=== PATIENT | male | born 1935 | race Caucasian/White ===

== ENCOUNTER 2017-04-22 13:00 | Inpatient (IN) | payer MEDICARE, OTHER ==
--- NOTE | 2017-04-22 16:00 | HP ---
PRIMARY CARE PHYSICIAN: Dr. Guille Ugarte. REASON FOR ADMISSION: Transfer from [facility] for sepsis, community-acquired pneumonia. HISTORY OF PRESENT ILLNESS: An 81-year-old male with a history of hypertension , benign enlargement of prostate, gastroesophageal reflux disease, who initially went to [facility] for evaluation of high grade fever. The patient was also having cough. The patient reports that last night he had too much this morning around 4:00 a.m. He woke up at that time he had episode of vomiting. He felt that he might have aspirated food particle. Subsequently , he was having cough productive of scant sputum. He started having fever with a T maximum 102 at home. He was feeling chills and he was feeling mild shortness of breath. He decided to go to local emergency room. Over there, he was tachycardic with pulse 111 and temperature 99.3. His blood pressure was normal. He was saturating normal. His routine blood tests showed leukocytosis with a left shift. He was given Zosyn, IV fluids, Zofran and subsequently, he was sent to our emergency room for evaluation. Patient had a similar problem about 4 years ago. At that time, he had abnormal x-ray and he was able to go home from the ER with oral medication. He denies any UTI symptoms. He denies any constipation or diarrhea. He denies any abdominal pain. He denies any recent flu-like illness. He does have chronic sinusitis and nasal drip and that gives intermittent cough. He denies any pleuritic chest pain. He denies any sore throat. He denies any recent travel or sick exposure. He is up to date in his flu and pneumonia vaccinations. He is following Dr. Frandy Riggs at [facility]. PAST MEDICAL HISTORY: Nephrolithiasis, benign enlargement of prostate, hypertension, dyslipidemia, and gastroesophageal reflux disease. PAST SURGICAL HISTORY: Wrist fusion, appendicectomy, carpal tunnel surgery, cholecystectomy, appendicectomy, vasectomy, hernia repair, neck surgery for bone spur. PAST PSYCHIATRIC HISTORY: Reviewed and negative. SOCIAL HISTORY: Patient is a former smoker. He quit smoking more than 10 years ago. He denies any alcohol or other illicit drug abuse. He lives at home with his family. FAMILY HISTORY: No strong family history of premature CAD, CVA or cancer. EMERGENCY ROOM COURSE At [facility], the patient was given IV fluid, Zofran and Zosyn. ALLERGIES: DOXYCYCLINE. CURRENT HOME MEDICATIONS: Aspirin 81 mg p.o. daily, Detrol-LA 4 mg p.o. daily, metoprolol 25 mg p.o. daily, Flonase nasal spray daily, omeprazole 20 mg p.o. daily, Flomax 0.4 mg p.o. daily, calcium with vitamin D 1 tablet p.o. daily, Centrum Silver 1 tablet p.o. daily, hydrochlorothiazide 12.5 mg daily. REVIEW OF SYSTEMS: The following complete review of systems was negative, unless otherwise mentioned in the HPI or below: CONSTITUTIONAL: Weight loss or gain, ability to conduct usual activities. SKIN: Rash, itching. EYES: Double vision, pain. ENT/MOUTH: Nose bleeding, neck stiffness, pain, tenderness. CARDIOVASCULAR: Palpitations, dyspnea on exertion, orthopnea. RESPIRATORY: Shortness of breath, wheezing, cough, hemoptysis, fever or night sweats. GASTROINTESTINAL: Poor appetite, abdominal pain, heartburn, nausea, vomiting, constipation, or diarrhea. GENITOURINARY: Urgency, frequency, dysuria, nocturia. MUSCULOSKELETAL: Pain, swelling. NEUROLOGIC/PSYCHIATRIC: Anxiety, depression. ALLERGY/IMMUNOLOGIC: Skin rash, bleeding tendency. Please see my HPI for pertinent positives and negatives. All other review of systems reviewed and negative except as mentioned in the HPI. PHYSICAL EXAMINATION: VITAL SIGNS: Most recent vital signs in our emergency room, temperature 99.3, blood pressure 137/67, pulse 73, respiratory rate 24. Weight 77.1 kilograms. GENERAL: Patient is currently alert, awake, no obvious acute distress. HEAD: Normocephalic, atraumatic. Eyes: Pupils round, reactive to light. Extraocular muscles intact. ENT: Oropharynx within normal limits. Moist mucous membranes. No oral lesions. No pharyngeal erythema, no exudate. NECK: Supple, no JVD, no thyromegaly, no carotid bruit, no jugular venous distention. LUNGS: Right lower lobe rales noted. Few wheezes heard. No accessory muscles of respiration in use. CARDIAC: S1, S2 regular, slight tachycardia, no murmur, no gallop, no rub. ABDOMEN: Soft, bowel sounds present, nontender, nondistended. No organomegaly , no mass, no suprapubic tenderness. BACK: Unremarkable, no CVA tenderness. EXTREMITIES: Upper extremity: Passive movement of all joints are normal. Lower extremity: No edema. Good peripheral pulsation. SKIN: No skin rash. HEMATOLOGICAL: No lymphadenopathy. PSYCHIATRIC: Normal affect. NEUROLOGIC: Nonfocal examination. The patient moves all 4 limbs. Plantar bilateral flexor. SIGNIFICANT LABS: Blood tests done at [facility]. CBC: WBC 16.4 , hemoglobin 15.5, platelets 175 with a left shift. BMP: Sodium 140, potassium 3.5, chloride 105, carbon dioxide 23, BUN 22, creatinine 1.08, glucose 152, calcium 9.0. Lactic acid 2.5. AST 78, ALT 64, alkaline phosphatase 132, albumin 3.7. Urinalysis is unremarkable. Influenza A and B negative. ASSESSMENT AND PLAN/IMPRESSION: 1. Sepsis. The patient has high-grade fever, leukocytosis, lactic acidosis, relative low blood pressure. Patient meets sepsis criteria. Source of infection is pneumonia. Patient received Zosyn at other emergency room. At this point, we will change antibiotic therapy to Rocephin and levofloxacin. We will follow up on culture result. 2. Right lower lobe community-acquired pneumonia, less likely to be aspiration related. At this point, we will continue Rocephin, levofloxacin. Influenza screen is negative. We will continue DuoNeb q.6 hourly, Mucinex 600 mg twice daily. 3. Lactic acidosis, likely due to sepsis. We will repeat lactic acid level tomorrow. 4. Transaminitis may be related with infection. We will repeat LFT tomorrow. 5. Hypertension. We will continue metoprolol 12.5 mg twice daily. 6. Gastroesophageal reflux disease. We will continue Protonix 40 mg p.o. daily. 7. Benign enlargement of prostate. We will continue Flomax 0.4 mg p.o. daily. 8. Allergic rhinitis/sinusitis. We will continue Flonase nasal spray daily. 9. Deep venous thrombosis prophylaxis, Lovenox 40 mg subQ daily. 10. Gastrointestinal prophylaxis, Protonix 40 mg p.o. daily. 11. CODE STATUS: The patient is full code. Patient's son is surrogate decision maker. Disposition plan based on clinical course. We are expecting patient's stay in hospital more than 2 midnights. Plan of care discussed with the patient and family member at bedside in the emergency room. [facility]ITALGus
[2017-04-22] MEDS ORDERED: Loperamide HCl 2 MG CAP PO PRN (17:14)
[2017-04-22] MEDS ORDERED: Artificial Tears 18 DROP/0.9 ML EA EYE PRN (17:14)
[2017-04-22] MEDS ORDERED: Zolpidem Tartrate 5 MG TAB PO PRN (17:14)
[2017-04-22] MEDS ORDERED: Eucerin (Mineral Oil/Petrolatum,White) 30 gm Jar TOP PRN (17:14)
[2017-04-22] MEDS ORDERED: Ondansetron ODT 4 MG TAB PO PRN (17:14)
[2017-04-22] MEDS ORDERED: Sodium Chloride 0.65% Nasal 44 ML BOT EA NARE PRN (17:14)
[2017-04-22] MEDS ORDERED: Benzonatate 100 MG CAP PO PRN (17:14)
[2017-04-22] MEDS ORDERED: cefTRIAXone\\ROCEPHIN 1 GM in Sodium Chloride 0.9% 100 ML IVPB SCH (17:14)
[2017-04-22] MEDS ORDERED: Acetaminophen 325 MG TAB PO PRN (17:14)
[2017-04-22] MEDS ORDERED: Senokot 8.6 MG TAB PO PRN (17:14)
[2017-04-22] MEDS ORDERED: hydrALAZINE 20 MG/ML VIAL SLOW IVP PRN (17:14)
[2017-04-22] MEDS ORDERED: Ondansetron HCl/PF 4 MG/2 ML Vial IVP PRN (17:14)
[2017-04-22] MEDS ORDERED: Milk Of Magnesia 30 ML UDCUP PO PRN (17:14)
[2017-04-22] MEDS ORDERED: Diabetic Tussin 200 MG/10 ML UDCUP PO PRN (17:14)
[2017-04-22] MEDS ORDERED: Chloraseptic Spray 180 ml Bottle PO PRN (17:14)
[2017-04-22] MEDS ORDERED: HYDROcodone/Acetaminophen 5/325 mg Tablet PO PRN (17:14)
[2017-04-22] MEDS ORDERED: Loratadine 10 MG TAB PO PRN (17:14)
[2017-04-22 17:24] VITALS: BMI 20.1
[2017-04-22] MEDS ORDERED: cefTRIAXone\\ROCEPHIN 1 GM, Syringe 0.4 ML in Sterile Water 9.6 ML SLOW IVP SCH (18:00)
[2017-04-22] MEDS: Sodium Chloride 0.9% 1,000 ML IV SCH (18:05)
[2017-04-22] MEDS: Metoprolol Tartrate 25 MG TAB PO SCH (20:28)
[2017-04-22] MEDS: guaiFENesin ER 600 MG TAB PO SCH (20:29)
[2017-04-22] MEDS: TROSPIUM 20 MG TABLET PO SCH (20:29)
[2017-04-23 05:05] LABS: #Eosinphils 0.2 thou/uL (0.0-0.7); #Lymphocytes 2.5 thou/uL (1.20-3.40); #Monocytes 0.9 thou/uL (0.11-0.59); #Neutrophils 6.4 thou/uL (1.40-6.50); %Basophils 0.2 % (0.0-1.0); %Eosinophils 1.6 % (0.0-10.0); %Lymphocytes 25.2 % (21.0-51.0); %Monocytes 8.9 % (0.0-10.0); %Neutrophils 64.2 % (42.0-75.0); Hemoglobin 12.1 g/dL (14.0-18.0); Mean Corpuscular Volume 94.1 fl (80.0-94.0); Mean Platelet Volume 7.2 fL (7.4-10.4); Platelet Count 156 thou/uL (130-400); RBC Distribution Width 12.2 % (11.5-14.5); Red Blood Cell (RBC) Count 3.79 mill/uL (4.70-6.10)
[2017-04-23 05:10] LABS: Lactic Acid 0.9 mmol/L (0.5-2.2)
[2017-04-23 05:14] LABS: ALT (SGPT) 73 U/L (8-55); AST (SGOT) 59 U/L (5-34); Albumin 2.8 g/dL (3.4-4.8); Alkaline Phosphatase 99 U/L (40-150); Anion Gap 8 mmol/L (10-20); BUN (Urea Nitrogen) 16 mg/dL (8.4-25.7); Bilirubin, Total 1.3 mg/dL (0.2-1.2); Calc. Creatinine Clearance 55 mL/min (70-130); Calcium 8.3 mg/dL (7.8-10.44); Carbon Dioxide 28 mmol/L (23-31); Chloride 108 mmol/L (98-107); Estimated GFR-MDRD 62; Globulin 2.2 g/dL (2.4-3.5); Glucose 97 mg/dL (83-110); Potassium 3.9 mmol/L (3.5-5.1); Sodium 140 mmol/L (136-145)
[2017-04-23] MEDS: Sodium Chloride 0.9% 1,000 ML IV SCH (05:35)
[2017-04-23] MEDS ORDERED: Calcium Carbonate + Vit D 1 TAB PO SCH (08:00)
[2017-04-23 08:45] VITALS: BP 123/57; TEMP 98.9
[2017-04-23] MEDS: TROSPIUM 20 MG TABLET PO SCH (08:51)
[2017-04-23] MEDS: Metoprolol Tartrate 25 MG TAB PO SCH (08:51)
[2017-04-23] MEDS: guaiFENesin ER 600 MG TAB PO SCH (08:51)
[2017-04-23] MEDS ORDERED: Multivitamin W/ Minerals 1 TAB PO SCH (09:00)
[2017-04-23] MEDS ORDERED: Fluticasone Propionate Nasal Spray 16 gm Bottle NASAL SCH (09:00)
[2017-04-23] MEDS ORDERED: Enoxaparin Sodium 40 MG/0.4 ML SYRINGE SC SCH (09:00)
[2017-04-23] MEDS ORDERED: Hydrochlorothiazide 25 MG TAB PO SCH (09:00)
[2017-04-23] MEDS ORDERED: Tamsulosin HCl 0.4 MG CAP PO SCH (09:00)
--- NOTE | 2017-04-23 10:13 | PDOC.PN ---
- Subjective Encounter Start Date: 04/23/17 Encounter Start Time: 09:10 -: old records requested/rev Patient seen and examined. No new complaints. No overnight events - Objective Resuscitation Status: Resuscitation Status FULL:Full Resuscitation MAR Reviewed: Yes Vital Signs & Weight: Vital Signs (12 hours) Temp Pulse Resp BP Pulse Ox 04/23/17 07:25 98.9 F 69 16 123/57 L 92 L 04/23/17 04:00 98.7 F 69 16 107/58 L 95 Weight Weight 170 lb I&O: 04/22/17 04/23/17 04/24/17 06:59 06:59 06:59 Intake Total 2500 240 Balance 2500 240 Result Diagrams: 04/23/17 04:38 04/23/17 04:39 Phys Exam - Physical Examination Constitutional: NAD HEENT: PERRLA, moist MMs, sclera anicteric Neck: no JVD, supple Respiratory: no wheezing, no rales, no rhonchi Cardiovascular: RRR, no significant murmur, no rub Gastrointestinal: soft, non-tender, no distention, positive bowel sounds Musculoskeletal: no edema, pulses present Neurological: non-focal, normal sensation, moves all 4 limbs Psychiatric: normal affect, A&O x 3 Skin: no rash, normal turgor Dx/Plan (1) Community acquired bacterial pneumonia Code(s): J15.9 - UNSPECIFIED BACTERIAL PNEUMONIA Status: Acute (2) Lactic acidosis Code(s): E87.2 - ACIDOSIS Status: Resolved (3) Sepsis Code(s): A41.9 - SEPSIS, UNSPECIFIED ORGANISM Status: Resolved (4) Transaminitis Code(s): R74.0 - NONSPEC ELEV OF LEVELS OF TRANSAMNS & LACTIC ACID DEHYDRGNSE Status: Acute (5) BPH (benign prostatic hyperplasia) Code(s): N40.0 - BENIGN PROSTATIC HYPERPLASIA WITHOUT LOWER URINRY TRACT SYMP Status: Chronic (6) Dyslipidemia Code(s): E78.5 - HYPERLIPIDEMIA, UNSPECIFIED Status: Chronic (7) GERD (gastroesophageal reflux disease) Code(s): K21.9 - GASTRO-ESOPHAGEAL REFLUX DISEASE WITHOUT ESOPHAGITIS Status: Chronic (8) Hypertension Code(s): I10 - ESSENTIAL (PRIMARY) HYPERTENSION Status: Chronic - Plan cont current plan of care, continue antibiotics * pt wants to go home * he is stable * will give levaquin * will check hepatitis abc * medication reviewed as below * symptomatic treatment. Review of Systems - Review of Systems Constitutional: negative: fever, chills, sweats, weakness, malaise, other ENT: negative: Ear Pain, Ear Discharge, Nose Pain, Nose Discharge, Nose Congestion, Mouth Pain, Mouth Swelling, Throat Pain, Throat Swelling, Other Respiratory: negative: Cough, Dry, Shortness of Breath, Hemoptysis, SOB with Excertion, Pleuritic Pain, Sputum, Wheezing Cardiovascular: negative: chest pain, palpitations, orthopnea, paroxysmal nocturnal dyspnea, edema, light headedness, other Gastrointestinal: negative: Nausea, Vomiting, Abdominal Pain, Diarrhea, Constipation, Melena, Hematochezia, Other Genitourinary: negative: Dysuria, Frequency, Incontinence, Hematuria, Retention , Other Musculoskeletal: negative: Neck Pain, Shoulder Pain, Arm Pain, Back Pain, Hand Pain, Leg Pain, Foot Pain, Other Skin: negative: Rash, Lesions, El, Bruising, Other - Medications/Allergies Allergies/Adverse Reactions: Allergies Allergy/AdvReac Type Severity Reaction Status Date / Time No Known Allergies Allergy Unverified 04/22/17 17:23 Medications: Current Medications Acetaminophen (Tylenol) 650 mg PO Q4H PRN PRN Reason: Headache/Fever or Pain Hydrocodone Bitart/Acetaminophen ([place] 5/325) 1 tab PO Q4H PRN PRN Reason: Moderate Pain (4-6) Albuterol/Ipratropium (Duoneb) 3 ml NEB [id number] [facility] Last Admin: 04/23/17 00:20 Dose: 3 ml Artificial Tears (Tears Naturale) 0 drop EA EYE PRN PRN PRN Reason: Dry Eyes Aspirin (Aspirin Chewable) 81 mg PO DAILY [facility] Last Admin: 04/23/17 08:51 Dose: 81 mg Benzonatate (Tessalon) 100 mg PO Q4H PRN PRN Reason: Cough Calcium/Vitamin D (Caltrate 600 + Vit D) 1 tab PO QAM-WM [facility] Last Admin: 04/23/17 08:51 Dose: 1 tab Enoxaparin Sodium (Lovenox) 40 mg SC 0900 [facility] Last Admin: 04/23/17 08:52 Dose: 40 mg Fluticasone Propionate (Flonase Nasal [place]) 0 gm NASAL DAILY [facility] Last Admin: 04/23/17 08:53 Dose: Not Given Guaifenesin (Robitussin Sf) 200 mg PO Q4H PRN PRN Reason: Cough Guaifenesin (Mucinex) 600 mg PO Q12HR [facility] Last Admin: 04/23/17 08:51 Dose: 600 mg Hydralazine HCl (Apresoline) 10 mg SLOW IVP Q4H PRN PRN Reason: Systolic BP > 180 Hydrochlorothiazide (Hydrochlorothiazide) 12.5 mg PO DAILY [facility] Last Admin: 04/23/17 08:52 Dose: 12.5 mg Levofloxacin 750 mg/ Device 150 mls @ 100 mls/hr IVPB Q24HR [facility] Last Admin: 04/22/17 18:05 Dose: 150 mls Sodium Chloride (Normal Saline 0.9%) 1,000 mls @ 100 mls/hr IV .Q10H [facility] Last Admin: 04/23/17 05:35 Dose: 1,000 mls Ceftriaxone Sodium 1 gm/ (Syringe 0.4 ml/ Sterile Water) 10 mls @ 120 mls/hr SLOW IVP 1800 [facility] Last Admin: 04/22/17 20:28 Dose: 10 mls Iron/Minerals/Multivitamins (Theragran M) 1 tab PO DAILY [facility] Last Admin: 04/23/17 08:52 Dose: 1 tab Loperamide HCl (Imodium) 2 mg PO PRN PRN PRN Reason: Diarrhea/Loose Stools Loratadine (Claritin) 10 mg PO DAILYPRN PRN PRN Reason: Sinus Symptoms Magnesium Hydroxide (Milk Of Magnesium) 30 ml PO DAILYPRN PRN PRN Reason: Constipation Metoprolol Tartrate (Lopressor) 12.5 mg PO BID [facility] Last Admin: 04/23/17 08:51 Dose: 12.5 mg Mineral Oil/White Petrolatum (Eucerin Cream) 0 gm TOP BIDPRN PRN PRN Reason: Dry Skin Ondansetron HCl (Zofran Odt) 4 mg PO Q6H PRN PRN Reason: Nausea/Vomiting Ondansetron HCl (Zofran) 4 mg IVP Q6H PRN PRN Reason: Nausea/Vomiting Pantoprazole Sodium (Protonix) 40 mg PO DAILY [facility] Last Admin: 04/23/17 08:51 Dose: 40 mg Phenol (Chloraseptic [place] 180 Ml Bot) 0 ml PO PRN PRN PRN Reason: Sore Throat Senna (Senokot) 2 tab PO HSPRN PRN PRN Reason: Constipation Sodium Chloride ([place] Nasal [place] 0.65%) 0 ml EA NARE QIDPRN PRN PRN Reason: Nasal Congestion Tamsulosin HCl (Flomax) 0.4 mg PO DAILY [facility] Last Admin: 04/23/17 08:51 Dose: 0.4 mg Trospium (Trospium Chloride) 20 mg PO BID [facility] Last Admin: 04/23/17 08:51 Dose: 20 mg Zolpidem Tartrate (Ambien) 5 mg PO HSPRN PRN PRN Reason: Insomnia
[2017-04-23 10:14] LABS: HBCM Index 0.06 S/CO (0-0.79); HBSAg Index 0.21 S/CO (0-0.99); Hep A IgM AB Non-Reactive (NonReactive); Hep B Surf Ag Non-Reactive S/CO (NonReactive); Hep C IgG Ab Non-Reactive (NonReactive); Hep C Index 0.36 S/CO (0-0.79); Hepatitis B Core IGM Abs Non-Reactive (NonReactive)
--- NOTE | 2017-04-23 10:56 | DIS ---
DATE OF ADMISSION: 04/22/2017 DATE OF DISCHARGE: 04/23/2017 PRIMARY CARE PHYSICIAN: Dr. Frandy Riggs. DISCHARGE DISPOSITION: Home. PRIMARY DISCHARGE DIAGNOSES: Community-acquired bacterial pneumonia, sepsis, lactic acidosis, transa minitis. SECONDARY DISCHARGE DIAGNOSES: Benign enlargement of prostate, dyslipidemia, gastroesophageal reflux disease and hypertension. PRIMARY PROCEDURE/OPERATION: None. RADIOLOGICAL INVESTIGATION: Chest x-ray showed right lower lobe infiltration. SIGNIFICANT LABS: Hemoglobin 12.1, WBC 10.0, platelets 156. BMP normal. AST 59, ALT 73. Blood cul ture negative. Urine culture negative. Influenza negative. DISCHARGE MEDICATIONS: Aspirin 81 mg p.o. daily, calcium with vitamin D 1 tablet p.o. daily, cetiriz ine 10 mg p.o. daily, Flonase nasal spray daily, hydrochlorothiazide 12.5 mg p.o. b.i.d., Levaquin 50 0 mg p.o. daily for 7 days, metoprolol tartrate 25 mg p.o. daily, Centrum Silver 1 tablet p.o. daily, omeprazole 20 mg p.o. daily, Flomax 0.4 mg p.o. daily and Detrol-LA 4 mg p.o. daily. CONTRAINDICATIONS: None. CODE STATUS: FULL CODE. INPATIENT CONSULTANTS: None. ALLERGIES: No known drug allergy. DISCHARGE PLAN: Post hospital, the patient will follow up with primary care physician in 1 week. HOSPITAL COURSE: An 81-year-old male who initially went to [facility] for fever and cou gh. He had an episode of vomiting and is suspected by himself aspiration. His influenza was negativ e. His chest x-ray showed right lower lobe infiltration. He had leukocytosis, lactic acidosis, and transaminitis. He was meeting for sepsis criteria. He was treated with Zosyn at [facility]. We treated him with Rocephin and Levaquin. On discharge, we changed to p.o. Levaquin. The silas reyes had clinically rapid improvement and he expressed his wish to go home. He is medically stable and he will finish 7 days of levofloxacin therapy at home. The patient is seen and examined at bedside today. Please see my progress note from today for furthe r details.
== END 2017-04-23 11:34 | disposition home or self-care (01) | DRG 871 ==
LOC: ERS 13:00 → T4-A 17:02
PROVIDERS: ADMIT Internal Medicine; ATTEND Internal Medicine
DX: A41.9 Sepsis, unspecified organism (principal); J15.9 Unspecified bacterial pneumonia; E87.2 Acidosis; I10 Essential (primary) hypertension; K21.9 Gastro-esophageal reflux disease without esophagitis; N40.0 Benign prostatic hyperplasia without lower urinary tract symptoms; J30.9 Allergic rhinitis, unspecified; Z87.891 Personal history of nicotine dependence; Z79.82 Long term (current) use of aspirin; E78.5 Hyperlipidemia, unspecified
CPT/HCPCS: 36415; 80053; 80074; 83605; 85025; 94640; 99285; A4216; J0696; J1650; J1956; J7620